=== PATIENT | male | born 1955 | race Caucasian/White ===

== ENCOUNTER 2023-04-21 07:33 | Day surgery (SDC) | payer MEDICARE ==
[2023-04-21] VITALS (17 sets, daily range): BP systolic 134–203; BP diastolic 82–147
[~2023-04-21] VITALS: Ht 172.7 cm; Wt 89.1 kg
[~2023-04-21 07:33] MED LIST: MAGNESIUM OXID500 MG PO; METF500 PO; MULVITA PO; ROSU5 PO
--- NOTE | 2023-04-21 08:09 | NUR ---
Ambulatory in Day Surgery History, Chart, Medications and Allergies reviewed before start of procedure.Pt reports feeling "anxious" he was prescrible a Xanax to be taken prior to procedure. However, pt did not take med. Initial sbp 200/100's. Repeat bp 170's/90's. Patient confirms NPO status and agrees with scheduled surgery. Patient States Post-Procedure ride home has been arranged.
--- NOTE | 2023-04-21 08:46 | NUR ---
04/21/23 0846 Miladys Jaramillo HISTORY, CHART, MEDICATIONS AND ALLERGIES REVIEWED BEFORE START OF PROCEDURE. PATIENT CONFIRMS NPO STATUS AND AGREES WITH SCHEDULED PROCEDURE. 3-LEAD EKG REVIEWED WITH PHYSICIAN PRIOR TO START OF PROCEDURE. MONITOR INTACT WITH CONTINUOUS PULSE OXIMETRY,CAPNOGRAPHY, 3-LEAD EKG, INTERMITTENT BP. SUPPLEMENTAL O2 TO BE TITRATED THROUGHOUT PROCEDURE TO MAINTAIN O2 SATURATION ABOVE 90%. PATIENT DETERMINED TO BE ASA APPROPRIATE FOR PROPOFOL SEDATION PRIOR TO START OF PROCEDURE BY DR. PARHAM.
--- NOTE | 2023-04-21 09:56 | NUR ---
[facility] DISCHARGE NOTE SBAR FROM [facility] AREVALO AT 0915. PT A&OX4, BREATHING RA, TOLERATING PO FLUIDS, NO COMPLAINTS. ABDOMEN SOFT AND NON-TENDER. Patient up to Ambulate independently. Gait steady. Discharge instructions reviewed with patient. Patient verbalizes understanding. Copy given to patient to take home. Discharged via wheelchair to private car for ride home.
== END 2023-04-21 09:45 | disposition home or self-care (01) ==
LOC: ORSCMMR 07:33 → ORD 08:30 → ORSCMMR 08:30
PROVIDERS: Internal Medicine Gastroenterology
PROC: 0DJD8ZZ Inspection of Lower Intestinal Tract, Via Natural or Artificial Opening Endoscopic (ICD-10-PCS; principal; 2023-04-21 08:30)
DX: Z12.11 Encounter for screening for malignant neoplasm of colon (principal); K57.30 Diverticulosis of large intestine without perforation or abscess without bleeding; I10 Essential (primary) hypertension; E11.9 Type 2 diabetes mellitus without complications; Z85.47 Personal history of malignant neoplasm of testis; Z85.89 Personal history of malignant neoplasm of other organs and systems; E78.00 Pure hypercholesterolemia, unspecified; Z79.84 Long term (current) use of oral hypoglycemic drugs; Z79.899 Other long term (current) drug therapy
CPT/HCPCS: 82947; J2704; J7120